=== PATIENT | female | born 1965 | race Two or more races ===

== ENCOUNTER 2016-08-09 13:38 | Emergency (ER) | payer MEDICAID ==
[~2016-08-09] VITALS: Ht 165.1 cm; Wt 67.0 kg
[2016-08-09 13:43] VITALS: BP 154/90
[2016-08-09] MEDS ORDERED: IBUPROFEN 200 MG TABLET PO ONE (14:30)
== END 2016-08-09 15:31 | disposition home or self-care (01) ==
LOC: ED 15:03
DX: S00.83XA Contusion of other part of head, initial encounter (principal); S20.212A Contusion of left front wall of thorax, initial encounter; W10.9XXA Fall (on) (from) unspecified stairs and steps, initial encounter; Y93.89 Activity, other specified; Y92.89 Other specified places as the place of occurrence of the external cause; Y99.8 Other external cause status
CPT/HCPCS: 70100; 71020